=== PATIENT | male | born 1980 | race Caucasian/White ===

== ENCOUNTER → 2016-03-11 | Outpatient (RCR) | payer SELFPAY | LOC: M OUTALCOH 02-12 16:08 | PROVIDERS: ATTEND Psychiatry & Neurology Psychiatry | DX: F12.20 Cannabis dependence, uncomplicated (principal) ==

== ENCOUNTER 2016-08-12 21:17 | Emergency (ER) | payer OTHER, SELFPAY ==
[~2016-08-12] VITALS: Ht 175.3 cm; Wt 70.0 kg
[2016-08-12] MEDS ORDERED: PRAV20TA2 PO (21:30)
[2016-08-12] MEDS ORDERED: fentaNYL 100 MCG/2 ML INJECTION (J3010) IV ONE (21:45)
[2016-08-12] MEDS ORDERED: NS 1,000 ML IV SCH (21:48)
[2016-08-12] MEDS ORDERED: PROPOFOL 200 MG/20 ML VIAL IV PRN (22:00)
[2016-08-12 23:15] VITALS: BP 122/68
[2016-08-12] MEDS ORDERED: NORCOTAB PO (23:23)
[2016-08-12] MEDS ORDERED: NORCO 5/325MG TABLET (BULK FOR ED) PO ONE (23:30)
--- NOTE | 2016-08-13 07:46 | REP ---
Clinical: Post reduction. Technique: Portable AP and lateral views of the right elbow. Findings: Satisfactory reduction is appreciated with overlying soft tissue swelling. Impression: Satisfactory right elbow reduction. Signed by Nav Gomez MD 08/13/2016 07:37 A
--- NOTE | 2016-08-13 07:50 | REP ---
Clinical: Trauma. Technique: AP and lateral views of the right elbow. Findings: Posterior dislocation is appreciated with overlying soft tissue swelling. No obvious fracture identified. Impression: Posterior elbow dislocation. Signed by Nav Gomez MD 08/13/2016 07:41 A
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
== END 2016-08-12 23:53 | disposition home or self-care (01) ==
LOC: M ED 21:17
DX: S53.124A Posterior dislocation of right ulnohumeral joint, initial encounter (principal); F17.210 Nicotine dependence, cigarettes, uncomplicated; Y04.0XXA Assault by unarmed brawl or fight, initial encounter; Y92.099 Unspecified place in other non-institutional residence as the place of occurrence of the external cause; Y93.89 Activity, other specified; Y99.9 Unspecified external cause status